=== PATIENT | male | born 1990 | race African-American/Black ===

== ENCOUNTER 2020-09-18 13:24 | Emergency (ER) | payer MEDICAID ==
[~2020-09-18] VITALS: Ht 185.4 cm; Wt 98.8 kg
[2020-09-18 13:31] VITALS: BP 103/60
== END 2020-09-18 15:31 | disposition home or self-care (01) ==
LOC: ED 15:23
DX: J02.9 Acute pharyngitis, unspecified (principal); Z20.828 Contact with and (suspected) exposure to other viral communicable diseases; R51.9 Headache, unspecified
CPT/HCPCS: 87635; 99283